=== PATIENT | female | born 1950 | race Caucasian/White ===

== ENCOUNTER 2019-10-22 12:09 | Emergency (ER) | payer SELFPAY ==
[~2019-10-22] VITALS: Ht 154.9 cm; Wt 93.4 kg
[2019-10-22 12:12] VITALS: Ht 154.9 cm; Wt 93.4 kg
[2019-10-22 14:06] VITALS: BP 137/68
== END 2019-10-22 14:06 | disposition home or self-care (01) ==
LOC: ED 12:09
DX: S86.912A Strain of unspecified muscle(s) and tendon(s) at lower leg level, left leg, initial encounter (principal); S79.912A Unspecified injury of left hip, initial encounter; I10 Essential (primary) hypertension; E11.9 Type 2 diabetes mellitus without complications; Z88.0 Allergy status to penicillin; W18.30XA Fall on same level, unspecified, initial encounter; Y93.89 Activity, other specified; Y92.89 Other specified places as the place of occurrence of the external cause; Y99.8 Other external cause status
CPT/HCPCS: J1885